=== PATIENT | female | born 1945 | race Caucasian/White ===

== ENCOUNTER → 2024-02-25 | Outpatient (CLI) | payer MEDICARE, BC, SELFPAY ==
[2024-02-25 11:10] LABS: Thyroid Stimulating Hormone 2.19 uIU/mL (0.55-4.78)
== END | disposition home or self-care (01) ==
LOC: COPL 10:09
PROVIDERS: Referring Provider Otolaryngology; Visit Provider Otolaryngology
DX: E03.9 Hypothyroidism, unspecified (principal)
CPT/HCPCS: 36415; 84443

== ENCOUNTER 2024-09-07 09:15 | Emergency (ER) | payer MEDICARE, BC, SELFPAY ==
[2024-09-07 09:31] VITALS: BP 180/95; PULSE 89; RESP 19; TEMP 36.8; O2SAT 98
--- NOTE | 2024-09-07 09:44 | EDNOTE_ITS ---
<Statement entered by Geno Almanzar MD - 09/07/24 13:41> As co-signing physician, I was present and available for consult prn. I concur with the plan and care as documented by the midlevel provider. ED General RME/HPI General Chief complaint: General Adult/Misc Complain Stated complaint: PRESCRIPTION REFILL Time Seen by Provider: 09/07/24 09:38 Source: patient Arrival date/time: 09/07/24 09:15 79-year-old female with a history of hypothyroidism presents to the emergency room for medication refill. Mode of arrival: ambulatory Limitations: no limitations Related Data Previous Rx's ?Medication ?Instructions ?Recorded levothyroxine 25 mcg capsule 25 mcg PO QDAY #20 caps 0 09/07/24 Allergies Allergy/AdvReac Type Severity Reaction Status Date / Time No Known Allergies Allergy Verified 09/07/24 09:21 Review of Systems Review of Systems Systems Reviewed: All systems reviewed, normal except as documented Constitutional Constitutional: Reports system reviewed and no additional complaints, except as documented, Denies fatigue, Denies fever(s), Denies headache(s) and Denies weakness Eyes Eyes: Reports system reviewed and no additional complaints, except as documented, Denies blurry vision and Denies change in vision ENT Ears, Nose, Mouth, and Throat: Reports system reviewed and no additional complaints, except as documented, Denies otalgia, Denies headache(s), Denies nasal congestion, Denies throat swelling and Denies vertigo Cardiovascular Cardiovascular: Reports system reviewed and no additional complaints, except as documented, Denies chest pain, Denies dyspnea and Denies dyspnea on exertion Respiratory Respiratory: Reports system reviewed and no additional complaints, except as documented, Denies chest congestion, Denies cough, Denies dyspnea, Denies dyspnea on exertion and Denies wheezing Gastrointestinal Gastrointestinal: Reports system reviewed and no additional complaints, except as documented, Denies abdominal pain, Denies cramping, Denies nausea and Denies vomiting Genitourinary Genitourinary: Reports system reviewed and no additional complaints, except as documented Musculoskeletal Musculoskeletal: Reports system reviewed and no additional complaints, except as documented and Denies back pain Integumentary/Breasts Skin/Breast: Reports system reviewed and no additional complaints, except as documented and Denies wounds Neurologic Neurologic: Reports system reviewed and no additional complaints, except as documented, Denies confusion, Denies headache(s), Denies lack of coordination, Denies vertigo and Denies weakness Psychiatric Psychiatric: Reports system reviewed and no additional complaints, except as documented, Denies anxiety, Denies confusion, Denies depression, Denies paranoia, Denies suicidal ideation and Denies tactile hallucinations Endocrine Endocrine: Reports system reviewed and no additional complaints, except as documented and Denies fatigue Hematologic/Lymphatic Hematologic/Lymphatic: Reports system reviewed and no additional complaints, except as documented and Denies lymphadenopathy Allergic/Immunologic Allergic/Immunologic: Reports system reviewed and no additional complaints, except as documented, Denies throat swelling, Denies urticaria and Denies wheezing Past Medical History Social History SMOKING STATUS: Never smoker ED Exam General Limitations: Present no limitations General appearance: Present alert and in no apparent distress Head Head exam: Present atraumatic Eye Eye exam: Present normal appearance, PERRL and EOMI ENT ENT exam: Present normal exam, normal oropharynx and mucous membranes moist Neck Neck exam: Present normal inspection, full ROM and trachea midline Chest Chest inspection: Present normal inspection and symmetric chest wall rise Respiratory Respiratory exam: Present normal lung sounds bilaterally Cardiovascular Cardiovascular exam: Present regular rate, normal rhythm and normal heart sounds Abdominal Exam Abdominal exam: Present soft and normal bowel sounds Extremities Exam Extremities exam: Present normal inspection and full ROM Back Exam Back exam: Present normal inspection and full ROM Neurological Exam Neurological exam: Present alert, oriented X3 and CN II-XII intact Psychiatric Psychiatric exam: Present normal affect and normal mood Skin Skin exam: Present warm, dry, intact and normal color Course Quality Measures none Vital Signs Vital signs: Vital Signs Temperature 98.2 F 09/07/24 09:31 Pulse Rate 89 09/07/24 09:31 Respiratory Rate 19 09/07/24 09:31 Blood Pressure 180/95 H 09/07/24 09:31 Pulse Oximetry (%) 98 09/07/24 09:31 Oxygen Delivery Method Room Air 09/07/24 09:31 Discharge Plan Plan Patient Disposition: HOME (Self Care) Discharge Disposition comment: Stable Prescriptions/Referrals Prescriptions/Med Rec: New levothyroxine 25 mcg capsule 25 mcg PO QDAY Qty: 20 0RF Problem List Clinical Impression: Encounter for medication refill Patient/Caregiver Discharge Instructions Additional Instructions: Please follow-up and establish care with a primary care provider in the next 24 to 48 hours I sent to a refill to your medication. For any evidence of worsening signs or symptoms return to the emergency room immediately Print Language: Yoruba Stand Alone Forms: Charlene Award Info., Patient Portal Info Letter PA/TRAFFIC CHIEF Supervising Physician JUNITO/JASE Supervising Physician: Dr. GABRIELLE PARADA Narrative [facility] hospital course: 79-year-old female with a history of hypothyroidism presents to the emergency room for medication refill. Patient is hemodynamically stable and in no apparent distress. Patient denies any other complaints and states her long established primary care provider recently retired and she has not found anyone. Patient states she has 4 pills left of her Synthroid levothyroxine medication. Patient takes 25 mcg daily A refill on her prescription was given patient was educated to follow-up and establish care with a primary care provider and return to the emergency room for any evidence of worsening signs or symptoms Clinical Information Provided by patient Medical Records Reviewed None Meds/Rx Considered, not Ordered None Labs/Rad/Tests considered, not Ordered None Chronic Illness/Social Conditions which may negatively complicate care or outcome(s)-explain: None or not applicable EKG EKG not done Lab Interpretation Labs: none Imaging Imaging interpretation: none Medication Administration(s) none Diagnosis Differential diagnosis: Medication refill Most likely dx, and/or detailed dx discussion: Encounter for medication refill Dispositon Disposition: Discharge Home
== END 2024-09-07 09:59 | disposition home or self-care (01) ==
LOC: SERX 09:44
PROVIDERS: Emergency Provider Nurse Practitioner Family
DX: Z76.0 Encounter for issue of repeat prescription (principal)
CPT/HCPCS: 99282

== ENCOUNTER → 2024-09-13 | Outpatient (BNVA) | payer MEDICARE, BC, SELFPAY | END | disposition home or self-care (01) | PROVIDERS: PCP Nurse Practitioner Family; Referring Provider Nurse Practitioner Family; Visit Provider Nurse Practitioner Family | DX: E03.9 Hypothyroidism, unspecified (principal); Z53.29 Procedure and treatment not carried out because of patient's decision for other reasons; Z23 Encounter for immunization | CPT/HCPCS: 90471; 90677; 90715; 99214; G0009 ==

== ENCOUNTER → 2024-09-20 | Outpatient (BNVA) | payer MEDICARE, BC, SELFPAY | END | disposition home or self-care (01) | PROVIDERS: PCP Nurse Practitioner Family; Referring Provider Nurse Practitioner Family; Visit Provider Nurse Practitioner Family | DX: Z71.2 Person consulting for explanation of examination or test findings (principal); E03.9 Hypothyroidism, unspecified; Z91.199 Patient's noncompliance with other medical treatment and regimen due to unspecified reason | CPT/HCPCS: 99213 ==